=== PATIENT | female | born 1985 ===

== ENCOUNTER 2018-03-31 10:08 | Inpatient (IN) ==
[2018-03-31] MEDS ORDERED: CITRIC ACID/SODIUM CITRATE 30 ML UDCUP PO ONE (10:55)
[2018-03-31] MEDS ORDERED: FAMOTIDINE 20 MG/2 ML VIAL IV ONE (10:55)
[2018-03-31] MEDS ORDERED: OXYTOCIN/LR 30 UNIT/1,000 ML BAG IV ONE (10:58)
[2018-03-31] MEDS ORDERED: OXYTOCIN 10 UNIT/ML VIAL IM ONE (10:58)
[2018-03-31] MEDS ORDERED: ceFAZolin 3,000 MG in SYRINGE 1 EACH IV ONE (11:00)
[2018-03-31] MEDS: LACTATED RINGERS 1,000 ML IV SCH ×2 (11:05→12:11)
[2018-03-31 11:21] LABS: Basophils % 0.4 % (0.0-0.8); Eosinophils % 0.4 % (0.00-10.9); Hematocrit 36.8 VOL% (35.7-47.0); Hemoglobin 12.1 GM/DL (12.0-16.0); Immature Granulocytes % 0.3 %; Immature Granulocytes Absolute 0.02 #; Lymphocytes # 2.2 10*3/uL (1.4-4.0); Lymphocytes % 30.9 % (21.3-54.2); Mean Corpuscular HGB Conc 32.9 GM/DL (32-36); Mean Corpuscular Hemoglobin 28 PG (27-34); Mean Corpuscular Volume 84.4 FL (87-102); Mean Platelet Volume 9.8 FL (9.6-12.0); Monocytes # 0.6 10*3/uL (0.11-0.8); Monocytes % 8.3 % (1.7-12.7); Neutrophils # 4.2 10*3/uL (1.4-7.4); Neutrophils % 59.7 % (38.7-73.9); Platelet Count 313 T/CUMM (130-400); Red Blood Count 4.36 MC/CUMM (3.8-5.5); Red Cell Distribution Width 14.1 % (9.3-17.3); White Blood Count 7.1 T/CUMM (4-12)
[2018-03-31 11:47] LABS: Albumin 2.7 G/DL (3.4-5.0); Bilirubin,Total 0.7 MG/DL (0.2-1.0); Osmolality,Calculated 273.7 MOS/KG (273-304); Potassium 3.9 MMOL/L (3.5-5.1); Total Protein 7.3 G/DL (6.4-8.3)
[2018-03-31] MEDS ORDERED: MORPHINE 10 MG/10 ML VIAL ONE (12:14)
[2018-03-31] MEDS ORDERED: ePHEDrine 50 MG/ML AMP ONE (12:14)
[2018-03-31] MEDS ORDERED: ONDANSETRON 4 MG/2 ML VIAL ONE (12:14)
[2018-03-31] MEDS ORDERED: BUPIVACAINE SPINAL 0.75% 2 ML AMP SPINAL ONE (12:15)
[2018-03-31] MEDS ORDERED: MIDAZOLAM 2 MG/2 ML VIAL ONE (13:18)
[2018-03-31 13:19] LABS: Cord Arterial Blood HCO3 23.4 MMOL/L
[2018-03-31 13:22] LABS: Cord Venous Blood HCO3 23.9 MMOL/L; Cord Venous Blood PCO2 48.9 MMHG; Cord Venous Blood PO2 31.2
[2018-03-31] MEDS ORDERED: PHENYLEPHRINE 1 MG/10 ML SYRINGE IV ONE (13:24)
[2018-03-31] MEDS ORDERED: OXYTOCIN/LR 20 UNIT/1,000 ML BAG IV ONE (13:37)
[2018-03-31] MEDS ORDERED: DEXTROSE 50% 25 GM/50 ML VIAL IV PRN ×2 (13:37→16:14)
[2018-03-31] MEDS ORDERED: ACETAMINOPHEN 325 MG TABLET PO PRN (13:37)
[2018-03-31] MEDS ORDERED: RHO(D) IMMUNE GLOBULIN 300 MCG SYRINGE IM ONE (13:37)
[2018-03-31] MEDS ORDERED: GLUCAGON 1 MG VIAL IM PRN ×2 (13:37→16:14)
[2018-03-31] MEDS ORDERED: ONDANSETRON 4 MG/2 ML VIAL IV PRN (13:37)
[2018-03-31 13:53] LABS: Apearance,Urine CLEAR (Clear); Bilirubin,Urine Negative (Negative); Blood, Urine Negative (Negative); Glucose,Urine (UA) Negative (Negative); Ketones,Urine 20 mg/dL (Negative); Mucus,Urine Occasional /LPF (Occasional); Nitrite,Urine Negative (Negative); Protein,Urine Negative; RBC,Urine 8 /HPF (0-4); Renal Epithelial Cells,Urine Occasional /HPF (<1); Squamous Epithelial Cell,Urine Occasional /HPF (0-10); Urine Color Yellow (Yellow); Urine Specific Gravity 1.015 (1.001-1.035); Urine Urobilinogen < 2.0 EU/DL (0.2-1.0); WBC,Urine 1 /HPF (0-6)
[2018-03-31] MEDS ORDERED: LACTATED RINGERS 1,000 ML IV SCH (14:00)
[2018-03-31] MEDS ORDERED: ceFAZolin 1,000 MG in SYRINGE 1 EACH IV SCH (14:00)
[2018-03-31] MEDS: INSULIN REGULAR 100 UNIT/ML SUBCUT SCH (18:46)
[2018-03-31] MEDS: DOCUSATE SODIUM 100 MG CAPSULE PO SCH (21:25)
[2018-03-31 21:34] LABS: Basophils % 0.2 % (0.0-0.8); Eosinophils % 0.3 % (0.00-10.9); Hematocrit 31.3 VOL% (35.7-47.0); Hemoglobin 10.5 GM/DL (12.0-16.0); Immature Granulocytes % 0.2 %; Immature Granulocytes Absolute 0.02 #; Lymphocytes # 2.1 10*3/uL (1.4-4.0); Lymphocytes % 23.3 % (21.3-54.2); Mean Corpuscular HGB Conc 33.5 GM/DL (32-36); Mean Corpuscular Hemoglobin 28 PG (27-34); Mean Corpuscular Volume 84.1 FL (87-102); Mean Platelet Volume 10.3 FL (9.6-12.0); Monocytes # 0.8 10*3/uL (0.11-0.8); Monocytes % 8.7 % (1.7-12.7); Neutrophils # 5.9 10*3/uL (1.4-7.4); Neutrophils % 67.3 % (38.7-73.9); Platelet Count 266 T/CUMM (130-400); Red Blood Count 3.72 MC/CUMM (3.8-5.5); Red Cell Distribution Width 13.9 % (9.3-17.3); White Blood Count 8.8 T/CUMM (4-12)
[2018-03-31] MEDS: IBUPROFEN 800 MG TABLET PO PRN (23:56)
[2018-04-01] MEDS: INSULIN REGULAR 100 UNIT/ML SUBCUT SCH ×4 (00:11→16:54)
[2018-04-01] MEDS ORDERED: ceFAZolin 1,000 MG in SYRINGE 1 EACH IV SCH (03:00)
[2018-04-01 06:44] LABS: Basophils % 0.2 % (0.0-0.8); Eosinophils # 0.1 10*3/uL (0.0-0.87); Eosinophils % 0.9 % (0.00-10.9); Hematocrit 32.9 VOL% (35.7-47.0); Hemoglobin 10.9 GM/DL (12.0-16.0); Immature Granulocytes % 0.5 %; Immature Granulocytes Absolute 0.05 #; Lymphocytes # 2.1 10*3/uL (1.4-4.0); Lymphocytes % 21.9 % (21.3-54.2); Mean Corpuscular HGB Conc 33.1 GM/DL (32-36); Mean Corpuscular Hemoglobin 28 PG (27-34); Mean Corpuscular Volume 84.4 FL (87-102); Mean Platelet Volume 9.5 FL (9.6-12.0); Monocytes % 10.1 % (1.7-12.7); Neutrophils # 6.2 10*3/uL (1.4-7.4); Neutrophils % 66.4 % (38.7-73.9); Platelet Count 253 T/CUMM (130-400); Red Cell Distribution Width 14.2 % (9.3-17.3); White Blood Count 9.4 T/CUMM (4-12)
[2018-04-01] MEDS: METOCLOPRAMIDE 10 MG/2 ML VIAL IV SCH ×3 (08:20→23:43)
[2018-04-01] MEDS: MULTIVITAMIN (PRENATAL) TABLET PO SCH (08:24)
[2018-04-01] MEDS: SIMETHICONE CHEW 80 MG TABLET PO PRN ×2 (08:25→19:46)
[2018-04-01] MEDS: DOCUSATE SODIUM 100 MG CAPSULE PO SCH ×2 (08:25→19:47)
[2018-04-01] MEDS: IBUPROFEN 800 MG TABLET PO PRN ×2 (08:25→18:03)
[2018-04-01] MEDS: MAGNESIUM HYDROXIDE SUSP 30 ML UDCUP PO PRN ×2 (08:25→19:46)
[2018-04-02] MEDS ORDERED: BISACODYL 10 MG SUPP RECTAL PRN (03:46)
[2018-04-02] MEDS: IBUPROFEN 800 MG TABLET PO PRN (03:47)
[2018-04-02] MEDS: DOCUSATE SODIUM 100 MG CAPSULE PO SCH ×2 (04:01→09:00)
[2018-04-02] MEDS: INSULIN REGULAR 100 UNIT/ML SUBCUT SCH (04:01)
[2018-04-02] MEDS: METOCLOPRAMIDE 10 MG/2 ML VIAL IV SCH ×2 (05:01→05:07)
[2018-04-02 07:23] VITALS: BP 111/62
[2018-04-02] MEDS: MULTIVITAMIN (PRENATAL) TABLET PO SCH (09:00)
[2018-04-02] MEDS: MAGNESIUM HYDROXIDE SUSP 30 ML UDCUP PO PRN (09:00)
[2018-04-02] MEDS: SIMETHICONE CHEW 80 MG TABLET PO PRN (09:00)
== END 2018-04-02 12:25 | disposition home or self-care (01) | DRG 786 ==
LOC: N.LDOUT 10:08 → N.LD 10:09 → N.OB 16:29
PROVIDERS: ADMIT Obstetrics & Gynecology; ATTEND Obstetrics & Gynecology
PROC: LDCSECT (ICD-10-PCS; 2018-03-31 10:30)